=== PATIENT | female | born 1965 | race American Indian/Alaskan Native ===

== ENCOUNTER 2017-06-11 13:56 | Emergency (ER) | payer OTHER ==
[2017-06-11 15:25] LABS: RBC URINE 1 /hpf (0-3); URINE BILIRUBIN NEGATIVE (NEGATIVE); URINE BLOOD NEGATIVE (NEGATIVE); URINE COLOR Yellow (YELLOW); URINE GLUCOSE (UA) 3+ mg/dL (Normal); URINE KETONE NEGATIVE (NEGATIVE); URINE LEUKOCYTE ESTERASE NEG Leu/uL (Negative); URINE PROTEIN NEGATIVE (NEGATIVE); URINE UROBILINOGEN NORMAL mg/dL (0.2-1.0); WBC URINE 1 /hpf (0-5)
[2017-06-11] MEDS ORDERED: Sodium Chloride 0.9% 1,000 ML IV ONE ×2 (15:57→16:33)
[2017-06-11 16:16] LABS: BASO # 0.1 K/uL (0.0-0.2); BASO % 0.8 % (0.0-2.0); EOS # 0.1 K/uL (0.0-0.7); EOS % 0.7 % (0.0-4.0); LYMPH # 3.5 K/uL (1.0-4.3); LYMPH % 36.4 % (20.0-40.0); MEAN CELL VOLUME 93.1 fL (81.0-99.0); MEAN CORPUSCULAR HEMOGLOBIN 32.2 pg (27.0-31.0); MEAN CORPUSCULAR HGB CONC 34.6 g/dL (33.0-37.0); MEAN PLATELET VOLUME 9.9 fL (7.2-11.7); MONO # 0.6 K/uL (0.0-0.8); MONO % 6.5 % (0.0-10.0); NRBC % 0.1 % (0.0-2.0); RED CELL DISTRIBUTION WIDTH 12.8 % (11.5-14.5); WHITE BLOOD COUNT 9.5 K/uL (4.8-10.8)
[2017-06-11 16:25] LABS: CHLORIDE 93 mmol/L (98-107)
[2017-06-11 16:26] LABS: SODIUM 131 mmol/L (132-148)
[2017-06-11 16:27] LABS: POTASSIUM 5.2 mmol/L (3.6-5.2)
[2017-06-11 16:28] LABS: AST/SGOT 79 U/L (14-36); CARBON DIOXIDE 28 mmol/L (22-30); GFR AFRICAN-AMERICAN > 60; TOTAL PROTEIN 8.6 g/dL (6.3-8.3)
[2017-06-11 16:29] LABS: ALKALINE PHOSPHATASE 118 U/L (38-126); ALT/SGPT 78 U/L (9-52); BLOOD UREA NITROGEN 10 mg/dL (7-17); CALCIUM 9.6 mg/dl (8.6-10.4)
[2017-06-11 16:31] LABS: GLUCOSE,RANDOM 403 mg/dL (65-105)
--- NOTE | 2017-06-11 17:47 | C.PDOC ---
History Of Present Illness 52 y/o female presents to ED with complaints of urinary frequency, vaginal itching, occasional dysuria and thirst. Patient states she has history of UTI "many years ago" and reports symptoms feel similar. Patient denies back pain, fever or any other complaints at this time. Time Seen by Provider: 06/11/17 14:45 Chief Complaint (Nursing): Female Genitourinary History Per: Patient History/Exam Limitations: no limitations Onset/Duration Of Symptoms: Days Current Symptoms Are (Timing): Still Present Past Medical History Reviewed: Historical Data, Nursing Documentation, Vital Signs Vital Signs: Last Vital Signs Temp 97.9 F 06/11/17 19:06 Pulse 68 06/11/17 19:06 Resp 16 06/11/17 19:06 BP 111/73 06/11/17 19:06 Pulse Ox 98 06/11/17 21:07 - Medical History PMH: No Chronic Diseases Surgical History: No Surg Hx Family History: States: No Known Family Hx - Social History Hx Alcohol Use: No Hx Substance Use: No - Immunization History Hx Tetanus Toxoid Vaccination: No Hx Influenza Vaccination: No Hx Pneumococcal Vaccination: No Review Of Systems Except As Marked, All Systems Reviewed And Found Negative. Constitutional: Negative for: Fever, Chills Genitourinary: Positive for: Dysuria, Frequency. Negative for: Hematuria Musculoskeletal: Negative for: Back Pain Skin: Negative for: Rash Neurological: Negative for: Weakness, Numbness Physical Exam - Physical Exam Appears: Non-toxic, No Acute Distress Skin: Normal Color, Warm, Dry, No Rash Head: Atraumatic, Normacephalic Eye(s): bilateral: Normal Inspection, EOMI Nose: Normal Oral Mucosa: Moist Neck: Normal ROM, Supple Chest: Symmetrical Cardiovascular: Rhythm Regular Respiratory: Normal Breath Sounds Gastrointestinal/Abdominal: Soft, No Tenderness Back: No CVA Tenderness, No Vertebral Tenderness Pelvic: Normal External Exam, No Vaginal Bleeding, Vaginal Discharge (white) Extremity: Normal ROM Neurological/Psych: Oriented x3, Normal Speech, Normal Cognition ED Course And Treatment - Laboratory Results Result Diagrams: 06/11/17 16:13 06/11/17 16:13 O2 Sat by Pulse Oximetry: 98 (RA) Pulse Ox Interpretation: Normal Progress Note: UA evaluated, fingerstick ordered. Discussed with patient diabetes, diet management and strict follow up. Case discussed with Dr. Araiza who agreed with plan and treatment. Disposition - Disposition Referrals: [facility] [Outside] Disposition: HOME/ ROUTINE Disposition Time: 17:44 Condition: STABLE Additional Instructions: Eat a well balanced diet. Avoid high salt, high sugar, and high fats. Exercise daily. Check your sugar and journal it. Follow up with the clinic in 1-2 days. 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 - Scribe Statement The provider has reviewed the documentation as recorded by the Keilaibernestine Greenberg All medical record entries made by the Celestine were at my direction and personally dictated by me. I have reviewed the chart and agree that the record accurately reflects my personal performance of the history, physical exam, medical decision making, and the department course for this patient. I have also personally directed, reviewed, and agree with the discharge instructions and disposition.
[2017-06-11 19:08] VITALS: BP 111/73; PULSE 68; RESP 16; TEMP 97.9
[2017-06-11 21:05] VITALS: O2SAT 98
== END 2017-06-11 19:07 | disposition home or self-care (01) ==
LOC: C.ER 13:56
DX: B37.3 Candidiasis of vulva and vagina (principal); E11.9 Type 2 diabetes mellitus without complications
CPT/HCPCS: 80053; 81001; 82009; 82948; 84703; 85025; 87086; 96360; 99284; J7040